=== PATIENT | female | born 1950 | race African-American/Black ===

== ENCOUNTER 2017-11-13 17:19 | Inpatient (IN) | payer MEDICAID, OTHER ==
[~2017-11-13] VITALS: Ht 160 cm; Wt 97.1 kg
[2017-11-13] MEDS ORDERED: LABETALOL HCL 20MG/4ML CARPUJECT IV ONE (17:45)
[2017-11-13 18:32] LABS: CHLORIDE 106 mEq/L (98-107)
[2017-11-13 18:37] LABS: ETHANOL BLOOD < 10 mg/dL
[2017-11-13 18:39] LABS: EOSINOPHILS % 2.2 % (0.0-5.0); HEMATOCRIT. 41.1 % (36.0-48.0); HEMOGLOBIN. 13.9 g/dL (12.0-16.0); LDL CHOLESTEROL 103 mg/dL (5-100); LYMPHOCYTES % 42.6 % (20.0-50.0); MEAN CORPUSCULAR HEMOGLOBIN 31.1 pg (28.0-32.0); MEAN CORPUSCULAR VOLUME 92.1 fL (81.0-99.0); MONOCYTES % 10.4 % (2.0-8.0); NEUTROPHILS % 43.8 % (40.0-76.0); RED BLOOD CELL COUNT 4.46 mill/uL (4.2-5.4); RED CELL DISTRIBUTION WIDTH 13.7 % (11.6-14.6)
[2017-11-13 19:26] LABS: CLARITY URINE CLEAR (CLEAR); COLOR URINE YELLOW (YELLOW); KETONES URINE NEGATIVE (NEGATIVE); LEUKOCYTE ESTERASE URINE NEGATIVE (NEGATIVE); NITRITE URINE NEGATIVE (NEGATIVE); OCCULT BLOOD URINE NEGATIVE (NEGATIVE); PH URINE 7.5 (4.5-8.0); PROTEIN URINE NEGATIVE (NEGATIVE); SPECIFIC GRAVITY URINE 1.005 (1.005-1.030); UROBILINOGEN URINE 0.2 E.U./dL (0.2-1.0)
[2017-11-13 19:36] LABS: *AMPHETAMINES SCREEN URINE NEGATIVE (NEGATIVE); *BARBITURATES SCREEN URINE NEGATIVE (NEGATIVE); *BENZODIAZEPINES SCREEN URINE NEGATIVE (NEGATIVE); *COCAINE SCREEN URINE NEGATIVE (NEGATIVE); CANNABINOID URINE SCREEN NEGATIVE (NEGATIVE); METHADONE URINE SCREEN NEGATIVE (NEGATIVE); OPIATES URINE SCREEN NEGATIVE (NEGATIVE); PHENCYCLIDINE URINE SCREEN NEGATIVE (NEGATIVE)
[2017-11-13] MEDS ORDERED: LABETALOL 5MG/ML SYR 20 MG/4 ML SYRINGE IV ONE (19:45)
[2017-11-13] MEDS ORDERED: ASPIRIN 325MG EC TABLET PO ONE (20:15)
[2017-11-13] MEDS ORDERED: GUAIFENESIN 200MG/10ML SUGAR FREE UDC PO PRN (22:00)
[2017-11-13] MEDS ORDERED: CLONIDINE 0.1MG TABLET PO PRN (22:00)
[2017-11-13] MEDS ORDERED: ONDANSETRON HCL 4MG/2ML VIAL IV PRN (22:00)
[2017-11-13] MEDS: SODIUM CHLORIDE 0.9% INJ 3ML FLUSH IVF SCH (22:00)
[2017-11-13] MEDS ORDERED: DIPHENHYDRAMINE 50MG/ML VIAL IV PRN (22:00)
[2017-11-13] MEDS ORDERED: MAGNESIUM/ALUMINUM HYDROXIDE/SIMETHICONE 30ML UDC PO PRN (22:00)
[2017-11-13] MEDS: ACETAMINOPHEN 325MG TABLET PO PRN (23:01)
[2017-11-13] MEDS ORDERED: HYDRALAZINE 20MG/ML VIAL IV PRN (23:25)
[2017-11-13 23:40] VITALS: BP 164/101
[2017-11-14] VITALS: BP 164/107
[2017-11-14 04:00] VITALS: BP 87/48
[2017-11-14] MEDS: SODIUM CHLORIDE 0.9% INJ 3ML FLUSH IVF SCH ×2 (05:01→13:16)
[2017-11-14 08:00] VITALS: BP 111/64
[2017-11-14] MEDS: AMLODIPINE 10MG TABLET PO SCH ×2 (08:18→08:21)
[2017-11-14] MEDS ORDERED: LISI10TA5 PO (08:20)
[2017-11-14] MEDS ORDERED: LISINOPRIL 40MG TABLET PO SCH (09:00)
[2017-11-14 12:00] VITALS: BP 107/61
[2017-11-14] MEDS: ACETAMINOPHEN 325MG TABLET PO PRN (14:32)
[2017-11-14 15:10] VITALS: BP 107/61
== END 2017-11-14 15:30 | disposition home or self-care (01) | DRG 47 ==
LOC: ER 17:19 → 7WST 21:46 → EDBEDREQ 21:50 → EDBEDREQSVC 21:56 → EDBEDREQTM 21:56 → EDBEDREQ 21:56 → ENRESERV 22:35 → 7WST 23:30
PROVIDERS: ADMIT Internal Medicine; ATTEND Internal Medicine
DX: G45.9 Transient cerebral ischemic attack, unspecified (principal); I67.4 Hypertensive encephalopathy; E66.9 Obesity, unspecified; R47.81 Slurred speech; R29.810 Facial weakness; Z91.14 Patient's other noncompliance with medication regimen; Z90.49 Acquired absence of other specified parts of digestive tract; Z82.3 Family history of stroke; Z80.2 Family history of malignant neoplasm of other respiratory and intrathoracic organs; Z79.899 Other long term (current) drug therapy; Z82.49 Family history of ischemic heart disease and other diseases of the circulatory system; Z86.61 Personal history of infections of the central nervous system; I16.0 Hypertensive urgency
CPT/HCPCS: 36415; 70450; 70551; 71045; 80053; 80061; 80305; 81003; 82962; 83721; 84484; 85025; 85610; 93005; 93880; 96374; 97162; 99285; G0482; J3490

== ENCOUNTER 2024-06-05 09:17 | Emergency (ER) | payer MEDICAID, OTHER ==
[~2024-06-05] VITALS: Ht 170.2 cm; Wt 91.0 kg
[2024-06-05 09:29] VITALS: O2SAT 73
[2024-06-05 10:05] LABS: DIFFERENTIAL COMMENT 0; HEMATOCRIT. 44.1 % (36.0-48.0); HEMOGLOBIN. 14.4 g/dL (12.0-16.0); LYMPHOCYTES % 31.3 % (20.0-50.0); MEAN CORPUSCULAR HEMOGLOBIN 31.1 pg (28.0-32.0); MEAN CORPUSCULAR HGB CONC 32.7 g/dL (31.0-37.0); MEAN CORPUSCULAR VOLUME 95.1 fL (81.0-99.0); MEAN PLATELET VOLUME 9.8 fl (7.4-10.4); MONOCYTES % 14.5 % (2.0-8.0); NEUTROPHILS % 54.2 % (40.0-76.0); PLATELET 291 x1000/uL (130-400); RED BLOOD CELL COUNT 4.64 mill/uL (4.2-5.4); RED CELL DISTRIBUTION WIDTH 14.1 % (11.6-14.6); WHITE BLOOD COUNT 6.5 x1000/uL (4.5-11.0)
[2024-06-05 10:12] LABS: CHLORIDE 108 mEq/L (98-107); POTASSIUM 3.1 mEq/L (3.5-5.1); SODIUM 144 mEq/L (136-145)
[2024-06-05 10:13] LABS: CALCIUM 10.1 mg/dL (8.7-10.4); CARBON DIOXIDE 29 mEq/L (21-32)
[2024-06-05 10:18] LABS: CREATININE 0.6 mg/dL (0.6-1.0); GLUCOSE 109 mg/dL (70-105); UREA NITROGEN BLOOD 10 mg/dL (9-23)
[2024-06-05 10:19] LABS: TROPONIN I HIGH SENSITIVITY 20 ng/L (3.0-34)
[2024-06-05 11:09] LABS: ALANINE AMINOTRANSFERASE 22 IU/L (10-49); ALBUMIN 3.8 g/dL (3.2-4.8); ASPARTATE AMINOTRANSFERASE 42 IU/L (<34); BILIRUBIN DIRECT 0.1 mg/dL (<=3.0); BILIRUBIN TOTAL 0.4 mg/dL (0.1-1.0); PROTEIN TOTAL 6.7 g/dL (6.0-8.3)
[2024-06-05 11:20] LABS: BG BASE EXCESS 0.3 mmol/L (-2.0-3.0); BG CARBOXYHEMOGLOBIN 0.8 % (0.5-1.5); BG DEOXYHEMOGLOBIN 3.5 % (0.0-5.0); BG FRACTION INSPIRED OXYGEN 21; BG HCO3 ACT 24.8 mmol/L (21.0-28.0); BG METHEMOGLOBIN 0.1 % (0.5-1.5); BG OXYGEN SATURATION 96.5 % (94.0-98.0); BG OXYHEMOGLOBIN 95.6 % (94.0-98.0); BG PCO2 39.8 mmHg (32.0-45.0); BG PH 7.413 (7.350-7.450); BG PO2 86.8 mmHg (83.0-108.0); BG SAMPLE SITE LEFT RADIAL; BG VENT MODE ROOM AIR
[2024-06-05 13:20] LABS: TROPONIN I HIGH SENSITIVITY 22 ng/L (3.0-34)
[2024-06-05 14:08] VITALS: BP 175/94; PULSE 71; RESP 12; TEMP 36.50292; O2SAT 97
[2024-06-05] MEDS: PIPERACILLIN/TAZO 3.375G/50ML 50 ML IV STA (14:58)
[2024-06-05] MEDS: ACETAMINOPHEN 325MG TABLET PO ONE (14:58)
== END 2024-06-05 15:03 | disposition short-term general hospital (02) ==
LOC: ER 09:17
DX: R06.02 Shortness of breath (principal); R05.9 Cough, unspecified; R51.9 Headache, unspecified; I10 Essential (primary) hypertension; Z90.49 Acquired absence of other specified parts of digestive tract; Z98.890 Other specified postprocedural states
CPT/HCPCS: 80076; 80048; 85025; 87040; 84484; 36415; 71045; 70450; 82805; 82375; 93005; 99285; 36600; Z7610 ×3; A4606

== ENCOUNTER 2024-06-17 06:08 | Inpatient (IN) | payer MEDICAID ==
[~2024-06-17] VITALS: Ht 160 cm; Wt 94.3 kg
[2024-06-17 06:39] VITALS: RESP 25
[2024-06-17 07:13] LABS: DIFFERENTIAL COMMENT 0; HEMATOCRIT. 42.4 % (36.0-48.0); LYMPHOCYTES % 38.8 % (20.0-50.0); MEAN CORPUSCULAR HEMOGLOBIN 31.7 pg (28.0-32.0); MEAN CORPUSCULAR VOLUME 96.2 fL (81.0-99.0); MEAN PLATELET VOLUME 10.7 fl (7.4-10.4); MONOCYTES % 13.5 % (2.0-8.0); NEUTROPHILS % 46.7 % (40.0-76.0); PLATELET 272 x1000/uL (130-400); RED BLOOD CELL COUNT 4.41 mill/uL (4.2-5.4); RED CELL DISTRIBUTION WIDTH 14.3 % (11.6-14.6); WHITE BLOOD COUNT 6.4 x1000/uL (4.5-11.0)
[2024-06-17 07:25] LABS: CARBON DIOXIDE 25 mEq/L (21-32); CHLORIDE 111 mEq/L (98-107); POTASSIUM 3.1 mEq/L (3.5-5.1); SODIUM 145 mEq/L (136-145)
[2024-06-17 07:26] LABS: CALCIUM 10.2 mg/dL (8.7-10.4)
[2024-06-17 07:29] LABS: INR 0.9; PROTHROMBIN TIME 10.6 sec (9.6-11.0)
[2024-06-17 07:30] LABS: CREATININE 0.6 mg/dL (0.6-1.0); GLUCOSE 123 mg/dL (70-105)
[2024-06-17] MEDS: IPRATROPIUM/ALBUTEROL 0.5-3(2.5)MG/3ML NEB HHN ONE (07:30)
[2024-06-17 07:31] LABS: UREA NITROGEN BLOOD 12 mg/dL (9-23)
[2024-06-17 07:32] LABS: ALANINE AMINOTRANSFERASE 28 IU/L (10-49); ASPARTATE AMINOTRANSFERASE 37 IU/L (<34)
[2024-06-17 07:33] LABS: ALBUMIN 3.9 g/dL (3.2-4.8); BILIRUBIN DIRECT 0.1 mg/dL (<=3.0); BILIRUBIN TOTAL 0.4 mg/dL (0.1-1.0); PROTEIN TOTAL 6.9 g/dL (6.0-8.3); TROPONIN I HIGH SENSITIVITY 16 ng/L (3.0-34)
[2024-06-17 08:00] VITALS: RESP 28
[2024-06-17] MEDS: KCL 10MEQ/50ML PREMIX 50 ML IV NR (09:43)
[2024-06-17] MEDS ORDERED: PYRI60TA PO (11:05)
[2024-06-17] MEDS ORDERED: HYDR25TA78 PO (11:06)
[2024-06-17] MEDS ORDERED: APIX5TAB MT (11:07)
[2024-06-17] MEDS ORDERED: DILT-26 MT (11:08)
[2024-06-17 11:30] VITALS: RESP 33
[2024-06-17] MEDS: ETOMIDATE 2MG/ML 10ML VIAL IV ONE (12:39)
[2024-06-17] MEDS: ROCURONIUM BROMIDE 10MG/ML VIAL 5ML IV ONE (12:39)
[2024-06-17 12:41] VITALS: PULSE 130; RESP 16; O2SAT 99
[2024-06-17] MEDS ORDERED: FENTANYL 2500MCG/250ML PMX 250 ML IV ONE (13:00)
[2024-06-17] MEDS: FENTANYL CITRATE/PF 1,000 MCG in DEXT 5% WATER 80 ML IV PRN (13:19)
[2024-06-17 14:13] LABS: CLARITY URINE TURBID (CLEAR); COLOR URINE DARK YELLOW (YELLOW); GLUCOSE URINE NEGATIVE (NEGATIVE); KETONES URINE TRACE (NEGATIVE); LEUKOCYTE ESTERASE URINE 2+ (NEGATIVE); NITRITE URINE NEGATIVE (NEGATIVE); OCCULT BLOOD URINE NEGATIVE (NEGATIVE); PH URINE 5.5 (4.5-8.0); PROTEIN URINE 2+ (NEGATIVE); SPECIFIC GRAVITY URINE 1.022 (1.005-1.030)
[2024-06-17 14:23] LABS: BACTERIA URINE 4+; SQUAMOUS EPITHELIAL CELL URINE 3+ /lpf (RARE/1+); WBC URINE 15-25 /hpf (0-2); YEAST URINE NONE SEEN
[2024-06-17 15:37] LABS: BG BASE EXCESS -1.9 mmol/L (-2.0-3.0); BG CARBOXYHEMOGLOBIN 0.3 % (0.5-1.5); BG DEOXYHEMOGLOBIN 0.3 % (0.0-5.0); BG FRACTION INSPIRED OXYGEN 100; BG HCO3 ACT 21.3 mmol/L (21.0-28.0); BG METHEMOGLOBIN 0.3 % (0.5-1.5); BG OXYGEN SATURATION 99.7 % (94.0-98.0); BG OXYHEMOGLOBIN 99.1 % (94.0-98.0); BG PCO2 31.7 mmHg (32.0-45.0); BG PH 7.445 (7.350-7.450); BG PO2 402.6 mmHg (83.0-108.0); BG SAMPLE SITE LEFT RADIAL; BG TOTAL HEMOGLOBIN 12.7 g/dL (12.0-16.0); BG TOTAL RESPIRATORY RATE 17 b/min; BG VENT MODE VENT - AC
[2024-06-17] MEDS ORDERED: ONDANSETRON HCL 4MG/2ML INJ IV PRN (16:30)
[2024-06-17 16:45] VITALS: PULSE 74; RESP 17; O2SAT 99
[2024-06-17] MEDS: CEFTRIAXONE 1GM/50ML 50 ML IV SCH (19:00)
[2024-06-17 20:20] VITALS: PULSE 74; RESP 16; O2SAT 100
[2024-06-18] VITALS (102 sets, daily range): BP systolic 87–136; BP diastolic 60–88; PULSE 67–93; RESP 1–24; TEMP 36.6696–37.00296; O2SAT 92–100
[2024-06-18] MEDS: PROPOFOL 10MG/ML 100ML 100 ML IV SCH (00:22)
[2024-06-18 07:36] LABS: HEMOGLOBIN. 12.3 g/dL (12.0-16.0); MEAN CORPUSCULAR HEMOGLOBIN 31.6 pg (28.0-32.0); MEAN CORPUSCULAR HGB CONC 32.4 g/dL (31.0-37.0); MEAN CORPUSCULAR VOLUME 97.6 fL (81.0-99.0); MEAN PLATELET VOLUME 10.5 fl (7.4-10.4); PLATELET 233 x1000/uL (130-400); RED CELL DISTRIBUTION WIDTH 14.7 % (11.6-14.6); WHITE BLOOD COUNT 8.4 x1000/uL (4.5-11.0)
[2024-06-18 07:45] LABS: CHLORIDE 114 mEq/L (98-107); POTASSIUM 3.4 mEq/L (3.5-5.1); SODIUM 147 mEq/L (136-145)
[2024-06-18 07:46] LABS: CALCIUM 10.1 mg/dL (8.7-10.4); CARBON DIOXIDE 21 mEq/L (21-32)
[2024-06-18 07:49] LABS: DIFFERENTIAL COMMENT 1
[2024-06-18 07:51] LABS: CREATININE 1.1 mg/dL (0.6-1.0); GLUCOSE 96 mg/dL (70-105); UREA NITROGEN BLOOD 18 mg/dL (9-23)
[2024-06-18 07:53] LABS: PHOSPHORUS 3.7 mg/dL (2.5-4.9)
[2024-06-18] MEDS: PANTOPRAZOLE SODIUM 40 MG/VIAL IV SCH (08:31)
[2024-06-18] MEDS: POTASSIUM CHLORIDE 20MEQ/PACKET PO NR (09:42)
[2024-06-18 10:04] LABS: BG BASE EXCESS -0.7 mmol/L (-2.0-3.0); BG DEOXYHEMOGLOBIN 3.7 % (0.0-5.0); BG FRACTION INSPIRED OXYGEN 70; BG HCO3 ACT 23.7 mmol/L (21.0-28.0); BG METHEMOGLOBIN 0.3 % (0.5-1.5); BG OXYGEN SATURATION 96.3 % (94.0-98.0); BG PCO2 38.5 mmHg (32.0-45.0); BG PH 7.408 (7.350-7.450); BG SAMPLE SITE RIGHT RADIAL; BG VENT MODE VENT - AC
[2024-06-18 11:05] LABS: PLATELET ESTIMATE NORMAL
[2024-06-18] MEDS: FENTANYL CITRATE/PF 1,000 MCG in SODIUM CHLORIDE 0.9% 80 ML IV PRN (13:04)
[2024-06-18] MEDS: IPRATROPIUM/ALBUTEROL 0.5-3(2.5)MG/3ML NEB HHN PRN (14:08)
[2024-06-18] MEDS: PROPOFOL 10MG/ML 100ML 100 ML IV PRN (15:57)
[2024-06-18] MEDS: CEFTRIAXONE 1GM/50ML 50 ML IV SCH (17:40)
[2024-06-18] MEDS: IMMUNE GLOBULIN GAMMA IV SCH (17:40)
[2024-06-19] VITALS (109 sets, daily range): BP systolic 93–228; BP diastolic 57–165; PULSE 73–173; RESP 8–28; TEMP 36.78072–38.3364; O2SAT 87–100
[2024-06-19] MEDS ORDERED: PROPOFOL 10MG/ML 100ML 100 ML IV PRN (03:45)
[2024-06-19] MEDS: AMIODARONE 150MG/100ML D5W 100 ML IV NR (04:32)
[2024-06-19] MEDS: AMIODARONE HCL 450 MG in DEXT 5% WATER 241 ML IV PRN (04:56)
[2024-06-19 08:23] LABS: BG BASE EXCESS -4.8 mmol/L (-2.0-3.0); BG CARBOXYHEMOGLOBIN 1.1 % (0.5-1.5); BG DEOXYHEMOGLOBIN 6.7 % (0.0-5.0); BG FRACTION INSPIRED OXYGEN 40; BG HCO3 ACT 22.2 mmol/L (21.0-28.0); BG OXYGEN SATURATION 93.2 % (94.0-98.0); BG OXYHEMOGLOBIN 92.2 % (94.0-98.0); BG PCO2 48.8 mmHg (32.0-45.0); BG PH 7.276 (7.350-7.450); BG PO2 73.6 mmHg (83.0-108.0); BG SAMPLE SITE RIGHT RADIAL; BG TOTAL HEMOGLOBIN 13.4 g/dL (12.0-16.0); BG VENT MODE VENT - AC
[2024-06-19] MEDS: ACETAMINOPHEN 325MG TABLET PO PRN (08:55)
[2024-06-19] MEDS: DILTIAZEM HCL 5MG/ML 5ML VIAL IV NR (09:33)
[2024-06-19] MEDS: ENOXAPARIN 100MG/ML SYR SUBCUT SCH (10:25)
[2024-06-19] MEDS: KCL 20MEQ/100ML PREMIX 100 ML IV SCH (10:25)
[2024-06-19] MEDS: DILTIAZEM HCL 125 MG in DEXT 5% WATER 100 ML IV PRN (11:04)
[2024-06-19] MEDS ORDERED: KCL 20MEQ/100ML PREMIX 100 ML IV NR (14:00)
[2024-06-19] MEDS: FENTANYL CITRATE/PF 1,000 MCG in DEXT 5% WATER 80 ML IV PRN (14:38)
[2024-06-19 17:25] LABS: CHLORIDE 112 mEq/L (98-107); POTASSIUM 4.9 mEq/L (3.5-5.1); SODIUM 139 mEq/L (136-145)
[2024-06-19 17:26] LABS: CALCIUM 9.6 mg/dL (8.7-10.4); CARBON DIOXIDE 16 mEq/L (21-32)
[2024-06-19 17:31] LABS: GLUCOSE 104 mg/dL (70-105); UREA NITROGEN BLOOD 23 mg/dL (9-23)
[2024-06-19] MEDS: PROPOFOL 10MG/ML 100ML 100 ML IV PRN (18:17)
[2024-06-20] VITALS (106 sets, daily range): BP systolic 77–206; BP diastolic 41–109; PULSE 73–152; RESP 0–33; TEMP 36.89184–37.55856; O2SAT 83–100
[2024-06-20] MEDS ORDERED: ASPI-1160 (00:54)
[2024-06-20] MEDS ORDERED: LOSA25TA26 (00:54)
[2024-06-20] MEDS ORDERED: PRED10TA (00:54)
[2024-06-20 06:43] LABS: BASOPHILS % 0.1 % (0.0-2.0); DIFFERENTIAL COMMENT 0; HEMATOCRIT. 38.5 % (36.0-48.0); HEMOGLOBIN. 12.7 g/dL (12.0-16.0); MEAN CORPUSCULAR HEMOGLOBIN 31.7 pg (28.0-32.0); MEAN PLATELET VOLUME 11.4 fl (7.4-10.4); MONOCYTES % 14.2 % (2.0-8.0); NEUTROPHILS % 58.7 % (40.0-76.0); PLATELET 205 x1000/uL (130-400); RED BLOOD CELL COUNT 4.01 mill/uL (4.2-5.4); RED CELL DISTRIBUTION WIDTH 14.4 % (11.6-14.6); WHITE BLOOD COUNT 10.9 x1000/uL (4.5-11.0)
[2024-06-20 06:58] LABS: CALCIUM 9.8 mg/dL (8.7-10.4); CHLORIDE 108 mEq/L (98-107); POTASSIUM 4.2 mEq/L (3.5-5.1); SODIUM 137 mEq/L (136-145)
[2024-06-20 06:59] LABS: CARBON DIOXIDE 22 mEq/L (21-32)
[2024-06-20 07:04] LABS: CREATININE 0.9 mg/dL (0.6-1.0); GLUCOSE 114 mg/dL (70-105); TRIGLYCERIDE 113 mg/dL (0-150); UREA NITROGEN BLOOD 25 mg/dL (9-23)
[2024-06-20] MEDS ORDERED: LIDOCAINE HCL 1% 10 MG/ML 10ML VIAL ONE (07:48)
[2024-06-20 09:24] LABS: BG BASE EXCESS -4.5 mmol/L (-2.0-3.0); BG CARBOXYHEMOGLOBIN 1.1 % (0.5-1.5); BG DEOXYHEMOGLOBIN 8.7 % (0.0-5.0); BG FRACTION INSPIRED OXYGEN 60; BG HCO3 ACT 20.5 mmol/L (21.0-28.0); BG METHEMOGLOBIN 0.3 % (0.5-1.5); BG OXYGEN SATURATION 91.2 % (94.0-98.0); BG OXYHEMOGLOBIN 89.9 % (94.0-98.0); BG PCO2 37.5 mmHg (32.0-45.0); BG PH 7.355 (7.350-7.450); BG PO2 62.3 mmHg (83.0-108.0); BG SAMPLE SITE LEFT RADIAL; BG TOTAL HEMOGLOBIN 12.3 g/dL (12.0-16.0); BG VENT MODE VENT - AC
[2024-06-20] MEDS: MAGNESIUM 2 G PREMIX 50 ML IV NR (09:59)
[2024-06-20] MEDS: METOPROLOL TARTRATE 50MG TABLET NG SCH (10:01)
[2024-06-20] MEDS ORDERED: DOXYCYCLINE HYCLATE 100 MG/VIAL IV SCH (10:30)
[2024-06-20] MEDS: IPRATROPIUM/ALBUTEROL 0.5-3(2.5)MG/3ML NEB HHN SCH (12:11)
[2024-06-20] MEDS: SODIUM CHLORIDE 0.9% 1,000 ML IV SCH (12:44)
[2024-06-20] MEDS: DOXYCYCLINE 100MG/100ML 100 ML IV SCH (12:51)
[2024-06-20] MEDS: SODIUM CHLORIDE 3% FOR INH 15ML NEB INH SCH (17:33)
[2024-06-20] MEDS: ACETYLCYSTEINE 200MG/ML 20% VIAL 4ML INH SCH (17:33)
[2024-06-20] MEDS: PROPOFOL 10MG/ML 100ML 100 ML IV PRN (21:29)
[2024-06-21] VITALS (92 sets, daily range): BP systolic 79–138; BP diastolic 47–101; PULSE 78–137; RESP 16–29; TEMP 36.72516–38.11416; O2SAT 84–100
[2024-06-21] MEDS: FENTANYL CITRATE/PF 1,000 MCG in SODIUM CHLORIDE 0.9% 80 ML IV PRN (03:49)
[2024-06-21 07:17] LABS: CARBON DIOXIDE 23 mEq/L (21-32); CHLORIDE 110 mEq/L (98-107); HEMATOCRIT. 31.7 % (36.0-48.0); HEMOGLOBIN. 10.3 g/dL (12.0-16.0); MEAN CORPUSCULAR HEMOGLOBIN 31.5 pg (28.0-32.0); MEAN CORPUSCULAR HGB CONC 32.5 g/dL (31.0-37.0); MEAN CORPUSCULAR VOLUME 96.9 fL (81.0-99.0); MEAN PLATELET VOLUME 11.2 fl (7.4-10.4); PLATELET 178 x1000/uL (130-400); POTASSIUM 4.1 mEq/L (3.5-5.1); RED BLOOD CELL COUNT 3.28 mill/uL (4.2-5.4); RED CELL DISTRIBUTION WIDTH 14.2 % (11.6-14.6); SODIUM 138 mEq/L (136-145); WHITE BLOOD COUNT 9.6 x1000/uL (4.5-11.0)
[2024-06-21 07:19] LABS: CALCIUM 9.5 mg/dL (8.7-10.4)
[2024-06-21 07:23] LABS: CREATININE 0.9 mg/dL (0.6-1.0); GLUCOSE 142 mg/dL (70-105); TRIGLYCERIDE 97 mg/dL (0-150); UREA NITROGEN BLOOD 29 mg/dL (9-23)
[2024-06-21 07:30] LABS: DIFFERENTIAL COMMENT 1
[2024-06-21 09:33] LABS: BG BASE EXCESS -5.9 mmol/L (-2.0-3.0); BG CARBOXYHEMOGLOBIN 0.1 % (0.5-1.5); BG DEOXYHEMOGLOBIN 0.8 % (0.0-5.0); BG FRACTION INSPIRED OXYGEN 60; BG HCO3 ACT 18.8 mmol/L (21.0-28.0); BG METHEMOGLOBIN 0.3 % (0.5-1.5); BG OXYGEN SATURATION 99.2 % (94.0-98.0); BG OXYHEMOGLOBIN 98.8 % (94.0-98.0); BG PCO2 34.1 mmHg (32.0-45.0); BG PH 7.359 (7.350-7.450); BG PO2 161.4 mmHg (83.0-108.0); BG SAMPLE SITE RIGHT RADIAL; BG TOTAL HEMOGLOBIN 11.5 g/dL (12.0-16.0); BG VENT MODE VENT - AC
[2024-06-21] MEDS: DIGOXIN 500MCG/2ML AMP IV NR (11:59)
[2024-06-21] MEDS ORDERED: DIGOXIN 125MCG TABLET PO SCH (18:00)
[2024-06-21] MEDS ORDERED: DIGOXIN 250MCG TABLET NG SCH (18:00)
[2024-06-21] MEDS: DIGOXIN 125MCG TABLET NG SCH (18:53)
[2024-06-21] MEDS: PROPOFOL 10MG/ML 100ML 100 ML IV PRN (19:49)
[2024-06-21 21:31] LABS: PLATELET ESTIMATE NORMAL
[2024-06-22] VITALS (99 sets, daily range): BP systolic 87–191; BP diastolic 53–127; PULSE 62–150; RESP 14–36; TEMP 36.3918–37.2252; O2SAT 86–100
[2024-06-22 07:18] LABS: CALCIUM 9.3 mg/dL (8.7-10.4); CARBON DIOXIDE 19 mEq/L (21-32); CHLORIDE 112 mEq/L (98-107); POTASSIUM 3.6 mEq/L (3.5-5.1); SODIUM 138 mEq/L (136-145)
[2024-06-22 07:24] LABS: CREATININE 0.7 mg/dL (0.6-1.0); GLUCOSE 116 mg/dL (70-105); TRIGLYCERIDE 111 mg/dL (0-150); UREA NITROGEN BLOOD 29 mg/dL (9-23)
[2024-06-22 07:51] LABS: MEAN CORPUSCULAR HEMOGLOBIN 31.4 pg (28.0-32.0); MEAN CORPUSCULAR HGB CONC 32.3 g/dL (31.0-37.0); MEAN CORPUSCULAR VOLUME 97.4 fL (81.0-99.0); MEAN PLATELET VOLUME 11.4 fl (7.4-10.4); PLATELET 164 x1000/uL (130-400); RED BLOOD CELL COUNT 3.18 mill/uL (4.2-5.4); RED CELL DISTRIBUTION WIDTH 14.2 % (11.6-14.6); WHITE BLOOD COUNT 6.5 x1000/uL (4.5-11.0)
[2024-06-22 08:22] LABS: DIFFERENTIAL COMMENT 1
[2024-06-22 10:23] LABS: PLATELET ESTIMATE NORMAL
[2024-06-22 10:43] LABS: BG BASE EXCESS -5.8 mmol/L (-2.0-3.0); BG CARBOXYHEMOGLOBIN 0.3 % (0.5-1.5); BG DEOXYHEMOGLOBIN 1.6 % (0.0-5.0); BG FRACTION INSPIRED OXYGEN 40; BG HCO3 ACT 18.6 mmol/L (21.0-28.0); BG METHEMOGLOBIN 0.3 % (0.5-1.5); BG OXYGEN SATURATION 98.4 % (94.0-98.0); BG OXYHEMOGLOBIN 97.8 % (94.0-98.0); BG PCO2 32.6 mmHg (32.0-45.0); BG PH 7.373 (7.350-7.450); BG PO2 117.5 mmHg (83.0-108.0); BG SAMPLE SITE RIGHT RADIAL; BG TOTAL HEMOGLOBIN 10.9 g/dL (12.0-16.0); BG VENT MODE VENT - AC
[2024-06-22] MEDS ORDERED: CEFEPIME 2GM IN DEXT 5% 100ML IV SCH (11:00)
[2024-06-22] MEDS: CEFEPIME 2GM/50ML DUPLEX 50 ML IV SCH (11:45)
[2024-06-22] MEDS: DOXYCYCLINE 100MG/100ML 100 ML IV SCH (21:33)
[2024-06-23] VITALS (103 sets, daily range): BP systolic 73–170; BP diastolic 26–128; PULSE 71–148; RESP 8–41; TEMP 36.44736–37.61412; O2SAT 97–100
[2024-06-23] MEDS: PROPOFOL 10MG/ML 100ML 100 ML IV PRN (00:36)
[2024-06-23 06:16] LABS: HEMATOCRIT. 34.1 % (36.0-48.0); HEMOGLOBIN. 10.9 g/dL (12.0-16.0); MEAN CORPUSCULAR HEMOGLOBIN 30.8 pg (28.0-32.0); MEAN CORPUSCULAR VOLUME 96.2 fL (81.0-99.0); MEAN PLATELET VOLUME 10.9 fl (7.4-10.4); PLATELET 183 x1000/uL (130-400); RED BLOOD CELL COUNT 3.54 mill/uL (4.2-5.4); RED CELL DISTRIBUTION WIDTH 14.2 % (11.6-14.6); WHITE BLOOD COUNT 5.4 x1000/uL (4.5-11.0)
[2024-06-23 06:19] LABS: CHLORIDE 115 mEq/L (98-107); DIFFERENTIAL COMMENT 1; POTASSIUM 3.5 mEq/L (3.5-5.1); SODIUM 142 mEq/L (136-145)
[2024-06-23 06:20] LABS: CALCIUM 9.5 mg/dL (8.7-10.4); CARBON DIOXIDE 19 mEq/L (21-32)
[2024-06-23 06:25] LABS: CREATININE 0.6 mg/dL (0.6-1.0); GLUCOSE 107 mg/dL (70-105); UREA NITROGEN BLOOD 21 mg/dL (9-23)
[2024-06-23 13:31] LABS: ATYPICAL LYMPHOCYTES 1
[2024-06-23 13:33] LABS: ANISOCYTOSIS 1+; PLATELET ESTIMATE NORMAL
[2024-06-23] MEDS: PYRIDOSTIGMINE BROMIDE 60MG TABLET PO SCH (17:16)
[2024-06-24] VITALS (105 sets, daily range): BP systolic 83–179; BP diastolic 56–109; PULSE 72–137; RESP 15–34; TEMP 36.3–37.3; O2SAT 96–100
[2024-06-24] MEDS: PROPOFOL 10MG/ML 100ML 100 ML IV PRN (02:11)
[2024-06-24 06:24] LABS: HEMATOCRIT. 31.3 % (36.0-48.0); HEMOGLOBIN. 10.1 g/dL (12.0-16.0); MEAN CORPUSCULAR HGB CONC 32.2 g/dL (31.0-37.0); MEAN CORPUSCULAR VOLUME 99.1 fL (81.0-99.0); MEAN PLATELET VOLUME 10.1 fl (7.4-10.4); PLATELET 204 x1000/uL (130-400); RED BLOOD CELL COUNT 3.16 mill/uL (4.2-5.4); RED CELL DISTRIBUTION WIDTH 14.9 % (11.6-14.6); WHITE BLOOD COUNT 4.3 x1000/uL (4.5-11.0)
[2024-06-24 06:30] LABS: CALCIUM 9.4 mg/dL (8.7-10.4); CHLORIDE 120 mEq/L (98-107); POTASSIUM 3.5 mEq/L (3.5-5.1); SODIUM 147 mEq/L (136-145)
[2024-06-24 06:31] LABS: CARBON DIOXIDE 18 mEq/L (21-32)
[2024-06-24 06:36] LABS: CREATININE 0.5 mg/dL (0.6-1.0); GLUCOSE 109 mg/dL (70-105); TRIGLYCERIDE 129 mg/dL (0-150); UREA NITROGEN BLOOD 18 mg/dL (9-23)
[2024-06-24 06:38] LABS: DIGOXIN 0.4 ng/mL (0.8-2.0)
[2024-06-24 07:27] LABS: DIFFERENTIAL COMMENT 1
[2024-06-24 08:54] LABS: BG BASE EXCESS -4.7 mmol/L (-2.0-3.0); BG CARBOXYHEMOGLOBIN 0.3 % (0.5-1.5); BG DEOXYHEMOGLOBIN 1.2 % (0.0-5.0); BG FRACTION INSPIRED OXYGEN 40; BG HCO3 ACT 19.5 mmol/L (21.0-28.0); BG METHEMOGLOBIN 0.3 % (0.5-1.5); BG OXYGEN SATURATION 98.8 % (94.0-98.0); BG OXYHEMOGLOBIN 98.2 % (94.0-98.0); BG PO2 141.7 mmHg (83.0-108.0); BG SAMPLE SITE LEFT BRACHIAL; BG TOTAL HEMOGLOBIN 10.3 g/dL (12.0-16.0); BG VENT MODE VENT - AC
[2024-06-24 17:15] LABS: PLATELET ESTIMATE NORMAL
[2024-06-24] MEDS: MAGNESIUM 2 G PREMIX 50 ML IV NR (17:18)
[2024-06-25] VITALS (105 sets, daily range): BP systolic 80–177; BP diastolic 52–113; PULSE 80–151; RESP 14–37; TEMP 36.3–36.7; O2SAT 0–100
[2024-06-25 06:42] LABS: CHLORIDE 117 mEq/L (98-107); POTASSIUM 3.8 mEq/L (3.5-5.1); SODIUM 146 mEq/L (136-145)
[2024-06-25 06:43] LABS: CALCIUM 9.5 mg/dL (8.7-10.4); CARBON DIOXIDE 20 mEq/L (21-32)
[2024-06-25 06:48] LABS: CREATININE 0.6 mg/dL (0.6-1.0); GLUCOSE 114 mg/dL (70-105); UREA NITROGEN BLOOD 18 mg/dL (9-23)
[2024-06-25 06:50] LABS: DIGOXIN 0.5 ng/mL (0.8-2.0)
[2024-06-25 07:19] LABS: HEMATOCRIT. 32.1 % (36.0-48.0); HEMOGLOBIN. 10.5 g/dL (12.0-16.0); MEAN CORPUSCULAR HEMOGLOBIN 31.5 pg (28.0-32.0); MEAN CORPUSCULAR HGB CONC 32.7 g/dL (31.0-37.0); MEAN CORPUSCULAR VOLUME 96.2 fL (81.0-99.0); MEAN PLATELET VOLUME 10.5 fl (7.4-10.4); PLATELET 235 x1000/uL (130-400); RED BLOOD CELL COUNT 3.34 mill/uL (4.2-5.4); RED CELL DISTRIBUTION WIDTH 14.6 % (11.6-14.6); WHITE BLOOD COUNT 5.6 x1000/uL (4.5-11.0)
[2024-06-25 07:46] LABS: DIFFERENTIAL COMMENT 1
[2024-06-25] MEDS: PROPOFOL 10MG/ML 100ML 100 ML IV PRN (08:27)
[2024-06-25 09:40] LABS: BG BASE EXCESS -3.3 mmol/L (-2.0-3.0); BG CARBOXYHEMOGLOBIN 0.3 % (0.5-1.5); BG DEOXYHEMOGLOBIN 1.1 % (0.0-5.0); BG FRACTION INSPIRED OXYGEN 40; BG HCO3 ACT 20.8 mmol/L (21.0-28.0); BG METHEMOGLOBIN 0.3 % (0.5-1.5); BG OXYGEN SATURATION 98.9 % (94.0-98.0); BG OXYHEMOGLOBIN 98.3 % (94.0-98.0); BG PH 7.404 (7.350-7.450); BG PO2 138.3 mmHg (83.0-108.0); BG SAMPLE SITE RIGHT RADIAL; BG TOTAL HEMOGLOBIN 11.6 g/dL (12.0-16.0); BG VENT MODE VENT - AC
[2024-06-25] MEDS: IPRATROPIUM/ALBUTEROL 0.5-3(2.5)MG/3ML NEB HHN SCH (20:15)
[2024-06-25 22:02] LABS: PLATELET ESTIMATE NORMAL
[2024-06-26] VITALS (105 sets, daily range): BP systolic 71–173; BP diastolic 54–120; PULSE 80–136; RESP 16–38; TEMP 36.5–37.4; O2SAT 86–100
[2024-06-26 05:42] LABS: CHLORIDE 118 mEq/L (98-107); HEMATOCRIT. 32.8 % (36.0-48.0); HEMOGLOBIN. 10.8 g/dL (12.0-16.0); MEAN CORPUSCULAR HEMOGLOBIN 31.6 pg (28.0-32.0); MEAN CORPUSCULAR VOLUME 95.9 fL (81.0-99.0); PLATELET 257 x1000/uL (130-400); POTASSIUM 3.9 mEq/L (3.5-5.1); RED BLOOD CELL COUNT 3.42 mill/uL (4.2-5.4); RED CELL DISTRIBUTION WIDTH 14.8 % (11.6-14.6); SODIUM 145 mEq/L (136-145); WHITE BLOOD COUNT 5.3 x1000/uL (4.5-11.0)
[2024-06-26 05:43] LABS: CARBON DIOXIDE 18 mEq/L (21-32)
[2024-06-26 05:44] LABS: CALCIUM 9.6 mg/dL (8.7-10.4)
[2024-06-26 05:48] LABS: CREATININE 0.5 mg/dL (0.6-1.0); GLUCOSE 119 mg/dL (70-105); TRIGLYCERIDE 135 mg/dL (0-150); UREA NITROGEN BLOOD 19 mg/dL (9-23)
[2024-06-26 06:03] LABS: DIFFERENTIAL COMMENT 1
[2024-06-26 08:29] LABS: BG BASE EXCESS -3.7 mmol/L (-2.0-3.0); BG CARBOXYHEMOGLOBIN 0.3 % (0.5-1.5); BG DEOXYHEMOGLOBIN 3.1 % (0.0-5.0); BG FRACTION INSPIRED OXYGEN 35; BG HCO3 ACT 20.5 mmol/L (21.0-28.0); BG METHEMOGLOBIN 0.3 % (0.5-1.5); BG OXYGEN SATURATION 96.9 % (94.0-98.0); BG OXYHEMOGLOBIN 96.3 % (94.0-98.0); BG PCO2 34.3 mmHg (32.0-45.0); BG PH 7.395 (7.350-7.450); BG PO2 88.6 mmHg (83.0-108.0); BG SAMPLE SITE LEFT RADIAL; BG VENT MODE VENT - AC
[2024-06-26 17:44] LABS: PLATELET ESTIMATE NORMAL
[2024-06-26] MEDS: PROPOFOL 10MG/ML 100ML 100 ML IV PRN (22:04)
[2024-06-27] VITALS (91 sets, daily range): BP systolic 74–162; BP diastolic 41–97; PULSE 75–122; RESP 16–25; TEMP 35.9–37.3; O2SAT 96–100
[2024-06-27 08:01] LABS: CHLORIDE 115 mEq/L (98-107); POTASSIUM 4.1 mEq/L (3.5-5.1); SODIUM 146 mEq/L (136-145)
[2024-06-27 08:02] LABS: CALCIUM 9.8 mg/dL (8.7-10.4); CARBON DIOXIDE 21 mEq/L (21-32)
[2024-06-27 08:07] LABS: BASOPHILS % 0.2 % (0.0-2.0); CREATININE 0.5 mg/dL (0.6-1.0); DIFFERENTIAL COMMENT 0; GLUCOSE 108 mg/dL (70-105); HEMOGLOBIN. 11.2 g/dL (12.0-16.0); LYMPHOCYTES % 32.4 % (20.0-50.0); MEAN PLATELET VOLUME 10.1 fl (7.4-10.4); MONOCYTES % 14.2 % (2.0-8.0); NEUTROPHILS % 53.2 % (40.0-76.0); PLATELET 251 x1000/uL (130-400); RED BLOOD CELL COUNT 3.62 mill/uL (4.2-5.4); RED CELL DISTRIBUTION WIDTH 14.3 % (11.6-14.6); UREA NITROGEN BLOOD 23 mg/dL (9-23)
[2024-06-27 08:14] LABS: BG BASE EXCESS -1.6 mmol/L (-2.0-3.0); BG CARBOXYHEMOGLOBIN 0.3 % (0.5-1.5); BG DEOXYHEMOGLOBIN 1.8 % (0.0-5.0); BG FRACTION INSPIRED OXYGEN 35; BG HCO3 ACT 22.1 mmol/L (21.0-28.0); BG METHEMOGLOBIN 0.3 % (0.5-1.5); BG OXYGEN SATURATION 98.2 % (94.0-98.0); BG OXYHEMOGLOBIN 97.6 % (94.0-98.0); BG PCO2 33.8 mmHg (32.0-45.0); BG PH 7.433 (7.350-7.450); BG PO2 115.4 mmHg (83.0-108.0); BG TOTAL HEMOGLOBIN 11.2 g/dL (12.0-16.0); BG VENT MODE VENT - AC
[2024-06-27] MEDS: PROPOFOL 10MG/ML 100ML 100 ML IV PRN (09:19)
[2024-06-27] MEDS: FUROSEMIDE 40MG/4ML VIAL IVP NR (18:12)
[2024-06-28] VITALS (71 sets, daily range): BP systolic 84–151; BP diastolic 57–90; PULSE 64–118; RESP 14–24; TEMP 36.7–37.2; O2SAT 97–100
[2024-06-28 08:04] LABS: INR 0.9; PROTHROMBIN TIME 10.6 sec (9.6-11.0)
[2024-06-28 09:04] LABS: BG BASE EXCESS 1.1 mmol/L (-2.0-3.0); BG CARBOXYHEMOGLOBIN 0.3 % (0.5-1.5); BG DEOXYHEMOGLOBIN 1.7 % (0.0-5.0); BG FRACTION INSPIRED OXYGEN 35; BG HCO3 ACT 24.5 mmol/L (21.0-28.0); BG METHEMOGLOBIN 0.3 % (0.5-1.5); BG OXYGEN SATURATION 98.3 % (94.0-98.0); BG OXYHEMOGLOBIN 97.7 % (94.0-98.0); BG PCO2 34.5 mmHg (32.0-45.0); BG PH 7.469 (7.350-7.450); BG PO2 112.8 mmHg (83.0-108.0); BG SAMPLE SITE RIGHT RADIAL; BG TOTAL HEMOGLOBIN 10.8 g/dL (12.0-16.0); BG TOTAL RESPIRATORY RATE 17 b/min; BG VENT MODE VENT - AC
[2024-06-28] MEDS: PROPOFOL 10MG/ML 100ML 100 ML IV SCH (13:42)
[2024-06-29] VITALS (65 sets, daily range): BP systolic 106–181; BP diastolic 25–143; PULSE 64–135; RESP 16–32; TEMP 37.1–38.8; O2SAT 91–100
[2024-06-29 08:22] LABS: BASOPHILS % 0.1 % (0.0-2.0); DIFFERENTIAL COMMENT 0; HEMATOCRIT. 29.6 % (36.0-48.0); HEMOGLOBIN. 9.8 g/dL (12.0-16.0); LYMPHOCYTES % 28.6 % (20.0-50.0); MEAN CORPUSCULAR HEMOGLOBIN 31.3 pg (28.0-32.0); MEAN CORPUSCULAR HGB CONC 33.1 g/dL (31.0-37.0); MEAN CORPUSCULAR VOLUME 94.5 fL (81.0-99.0); MEAN PLATELET VOLUME 10.4 fl (7.4-10.4); MONOCYTES % 12.2 % (2.0-8.0); NEUTROPHILS % 59.1 % (40.0-76.0); PLATELET 250 x1000/uL (130-400); RED BLOOD CELL COUNT 3.13 mill/uL (4.2-5.4); RED CELL DISTRIBUTION WIDTH 14.2 % (11.6-14.6); WHITE BLOOD COUNT 5.9 x1000/uL (4.5-11.0)
[2024-06-29 08:46] LABS: CHLORIDE 111 mEq/L (98-107); POTASSIUM 3.9 mEq/L (3.5-5.1); SODIUM 143 mEq/L (136-145)
[2024-06-29 08:47] LABS: CARBON DIOXIDE 23 mEq/L (21-32)
[2024-06-29 08:48] LABS: CALCIUM 9.8 mg/dL (8.7-10.4)
[2024-06-29 08:52] LABS: CREATININE 0.4 mg/dL (0.6-1.0); GLUCOSE 103 mg/dL (70-105); TRIGLYCERIDE 99 mg/dL (0-150); UREA NITROGEN BLOOD 24 mg/dL (9-23)
[2024-06-29] MEDS ORDERED: POTASSIUM CHLORIDE 20 MEQ in DEXT 5% WATER 90 ML IV ONE (20:30)
[2024-06-29] MEDS: FUROSEMIDE 40MG/4ML VIAL IVP NR (20:30)
[2024-06-29] MEDS: KCL 20MEQ/100ML PREMIX 100 ML IV SCH (20:30)
[2024-06-30] VITALS (76 sets, daily range): BP systolic 72–163; BP diastolic 32–92; PULSE 69–105; RESP 12–27; TEMP 36.7–37.4; O2SAT 93–100
[2024-06-30 06:48] LABS: CHLORIDE 108 mEq/L (98-107); POTASSIUM 3.5 mEq/L (3.5-5.1); SODIUM 143 mEq/L (136-145)
[2024-06-30 06:49] LABS: CALCIUM 10.1 mg/dL (8.7-10.4); CARBON DIOXIDE 28 mEq/L (21-32)
[2024-06-30 06:54] LABS: CREATININE 0.5 mg/dL (0.6-1.0); GLUCOSE 133 mg/dL (70-105)
[2024-06-30 06:55] LABS: UREA NITROGEN BLOOD 21 mg/dL (9-23)
[2024-06-30 06:57] LABS: PHOSPHORUS 2.1 mg/dL (2.5-4.9)
[2024-06-30 07:28] LABS: BASOPHILS % 0.2 % (0.0-2.0); HEMATOCRIT. 33.1 % (36.0-48.0); HEMOGLOBIN. 10.8 g/dL (12.0-16.0); MEAN CORPUSCULAR HEMOGLOBIN 31.2 pg (28.0-32.0); MEAN CORPUSCULAR HGB CONC 32.7 g/dL (31.0-37.0); MEAN CORPUSCULAR VOLUME 95.2 fL (81.0-99.0); MEAN PLATELET VOLUME 10.4 fl (7.4-10.4); MONOCYTES % 9.2 % (2.0-8.0); NEUTROPHILS % 69.6 % (40.0-76.0); PLATELET 282 x1000/uL (130-400); RED BLOOD CELL COUNT 3.47 mill/uL (4.2-5.4); RED CELL DISTRIBUTION WIDTH 14.2 % (11.6-14.6); WHITE BLOOD COUNT 9.9 x1000/uL (4.5-11.0)
[2024-06-30] MEDS ORDERED: IPRATROPIUM/ALBUTEROL 0.5-3(2.5)MG/3ML NEB HHN PRN (16:30)
[2024-07-01] VITALS (54 sets, daily range): BP systolic 80–150; BP diastolic 38–91; PULSE 74–110; RESP 10–30; TEMP 36.9–38.3; O2SAT 93–100
[2024-07-01 06:58] LABS: HEMATOCRIT. 30.6 % (36.0-48.0); HEMOGLOBIN. 10.2 g/dL (12.0-16.0); MEAN CORPUSCULAR HEMOGLOBIN 31.7 pg (28.0-32.0); MEAN CORPUSCULAR HGB CONC 33.4 g/dL (31.0-37.0); MEAN CORPUSCULAR VOLUME 94.9 fL (81.0-99.0); RED BLOOD CELL COUNT 3.22 mill/uL (4.2-5.4); RED CELL DISTRIBUTION WIDTH 14.5 % (11.6-14.6)
[2024-07-01 07:02] LABS: INR 0.9; PROTHROMBIN TIME 10.3 sec (9.6-11.0)
[2024-07-01 07:12] LABS: DIFFERENTIAL COMMENT 1
[2024-07-01 07:21] LABS: CHLORIDE 110 mEq/L (98-107); POTASSIUM 3.5 mEq/L (3.5-5.1); SODIUM 145 mEq/L (136-145)
[2024-07-01 07:22] LABS: CARBON DIOXIDE 30 mEq/L (21-32)
[2024-07-01 07:25] LABS: FOLIC ACID (FOLATE) SERUM 9.85 ng/mL (>5.38)
[2024-07-01 07:26] LABS: VITAMIN B12 SERUM 748 pg/mL (211-911)
[2024-07-01 07:27] LABS: CREATININE 0.5 mg/dL (0.6-1.0); GLUCOSE 129 mg/dL (70-105)
[2024-07-01 07:28] LABS: UREA NITROGEN BLOOD 28 mg/dL (9-23)
[2024-07-01 07:29] LABS: ALANINE AMINOTRANSFERASE 22 IU/L (10-49); ASPARTATE AMINOTRANSFERASE 30 IU/L (<34)
[2024-07-01] MEDS: ACETYLCYSTEINE 200MG/ML 20% VIAL 4ML INH SCH (09:50)
[2024-07-01 10:11] LABS: BILIRUBIN TOTAL 0.2 mg/dL (0.1-1.0); PROTEIN TOTAL 6.7 g/dL (6.0-8.3)
[2024-07-01 10:12] LABS: BILIRUBIN DIRECT < 0.1 mg/dL (<=3.0)
[2024-07-01 10:47] LABS: BG BASE EXCESS 3.1 mmol/L (-2.0-3.0); BG CARBOXYHEMOGLOBIN 0.1 % (0.5-1.5); BG DEOXYHEMOGLOBIN 1.9 % (0.0-5.0); BG FRACTION INSPIRED OXYGEN 35; BG HCO3 ACT 26.3 mmol/L (21.0-28.0); BG METHEMOGLOBIN 0.3 % (0.5-1.5); BG OXYGEN SATURATION 98.1 % (94.0-98.0); BG OXYHEMOGLOBIN 97.7 % (94.0-98.0); BG PCO2 35.2 mmHg (32.0-45.0); BG PH 7.492 (7.350-7.450); BG PO2 104.1 mmHg (83.0-108.0); BG SAMPLE SITE RIGHT RADIAL; BG TOTAL HEMOGLOBIN 10.2 g/dL (12.0-16.0); BG VENT MODE VENT - AC
[2024-07-01] MEDS: FUROSEMIDE 40MG/4ML VIAL IVP NR (12:42)
[2024-07-01 21:09] LABS: MEAN PLATELET VOLUME 10.3 fl (7.4-10.4); PLATELET 284 x1000/uL (130-400)
[2024-07-01 21:11] LABS: PLATELET ESTIMATE NORMAL
[2024-07-01] MEDS: ENOXAPARIN 100MG/ML SYR SUBCUT SCH (21:50)
[2024-07-02 01:48] VITALS: BP 136/74; PULSE 88; TEMP 99.1; O2SAT 99
== END 2024-07-02 | disposition short-term general hospital (02) | DRG 720 ==
LOC: ER 06:33 → CVICU 06-18 00:25
PROVIDERS: ADMIT Internal Medicine; ATTEND Internal Medicine
PROC: 0BH17EZ Insertion of Endotracheal Airway into Trachea, Via Natural or Artificial Opening (ICD-10-PCS; principal; 2024-06-17)
PROC: 5A1955Z Respiratory Ventilation, Greater than 96 Consecutive Hours (ICD-10-PCS; 2024-06-17)
PROC: 5A09357 Assistance with Respiratory Ventilation, Less than 24 Consecutive Hours, Continuous Positive Airway Pressure (ICD-10-PCS; 2024-06-17)
PROC: 02HV33Z Insertion of Infusion Device into Superior Vena Cava, Percutaneous Approach (ICD-10-PCS; 2024-06-20)
PROC: B548ZZA Ultrasonography of Superior Vena Cava, Guidance (ICD-10-PCS; 2024-06-20)
DX: A41.9 Sepsis, unspecified organism (principal); J96.01 Acute respiratory failure with hypoxia; R65.21 Severe sepsis with septic shock; G70.01 Myasthenia gravis with (acute) exacerbation; J18.9 Pneumonia, unspecified organism; E46 Unspecified protein-calorie malnutrition; G82.50 Quadriplegia, unspecified; I48.92 Unspecified atrial flutter; J90 Pleural effusion, not elsewhere classified; Z20.822 Contact with and (suspected) exposure to COVID-19; I48.0 Paroxysmal atrial fibrillation; E87.6 Hypokalemia; N39.0 Urinary tract infection, site not specified; I10 Essential (primary) hypertension; J98.11 Atelectasis; E83.42 Hypomagnesemia; R13.12 Dysphagia, oropharyngeal phase; D64.9 Anemia, unspecified; Z68.36 Body mass index [BMI] 36.0-36.9, adult; K80.50 Calculus of bile duct without cholangitis or cholecystitis without obstruction; Z90.49 Acquired absence of other specified parts of digestive tract; Z93.1 Gastrostomy status
CPT/HCPCS: 31500; 36415; 36573; 36600; 71045; 74181; 76604; 76700; 80048; 80076; 80162; 81003; 82375; 82607; 82746; 82805; 82962; 83519; 83735; 83880; 84100; 84145; 84478; 84484; 85025; 87070; 87426; 87493; 87804; 93005; 94002; 94003; 94070; 94640; 94660; 94664; 99291; 99292; A4606; A4663; C1725; C1893; J0282; J0692; J0696; J1160; J1459; J1650; J1940; J2003; J2470; J2704; J3010; J3475; J3480; J3490; J7030; J7050; J7060; J7608